=== PATIENT | female | born 1950 | race American Indian/Alaskan Native ===

== ENCOUNTER 2019-02-07 16:52 | Emergency (ER) | payer MEDICARE, MEDICAID ==
--- NOTE | 2019-02-07 17:06 | Emergency Department Report ---
Blank Doc - Documentation Documentation: 68 y o female presents with left shoulder pain, denies trauma, injury or fall ACC Eval
--- NOTE | 2019-02-07 20:09 | Emergency Department Report ---
Upper Extremity - HPI Chief Complaint: Shoulder Injury Stated Complaint: LT SHOULDER PAIN Time Seen by Provider: 02/07/19 17:04 Other History: pt is a 68 yo female who presents to the ED with c/o left shoulder pain that began a week and a half ago. she states that she was doing some heavy lifting helping her brother. she denies any fall, injury, or trauma. She states she does occasionally have a tingling sensation in the right arm to the fingers. she denies any numbness or weakness. ED Review of Systems ROS: Stated complaint: LT SHOULDER PAIN Other details as noted in HPI Comment: All other systems reviewed and negative ED Past Medical Hx - Past Medical History Hx Hypertension: Yes - Social History Smoking Status: Current Every Day Smoker Substance Use Type: None - Medications Home Medications: Home Medications Medication Instructions Recorded Confirmed Last Taken Type Acetaminophen/Codeine [Tylenol #3] 1 tab PO QHS PRN #7 tab 01/02/15 Unknown Rx methOCARBAMOL [Robaxin] 750 mg PO BID #10 tab 01/02/15 Unknown Rx Ibuprofen [Motrin 600 MG tab] 600 mg PO Q8H PRN #14 tablet 02/07/19 Unknown Rx Upper Extremity Exam - Exam General: Vital signs noted. No distress. Alert and acting appropriately. Head and Torso: No Neck Tenderness, No Chest/Lungs Abnormality Shoulder Exam: Yes Shoulder Tenderness (left sided AC joint tenderness to palpation), Yes Normal Range of Motion in Shoulder (discomfort with adduction ), Yes AC Joint Tenderness, No Clavicle Tenderness, No Shoulder Deformity Arm Exam: No Arm/Humerus Tenderness, No Arm Deformity Elbow: Yes Normal Range of Motion in Elbow, No Elbow Tenderness, No Elbow Deformity Forearm: No Forearm Tenderness, No Forearm Deformity, No Pain with Pronation, No Pain with Supination Wrist: Yes Normal ROM in Wrist, No Wrist Tenderness, No Wrist Deformity, No Snuffbox Tenderness, No Pain with Axial Thumb Compression Hand: Yes Normal ROM in Digit(s), No Hand Tenderness, No Hand Deformity, No Digit Tenderness, No Digit(s) Deformity, No Tendon Dysfunction CMS Exam: Yes Normal Distal Pulses, Yes Normal Capillary Refill, Yes Normal Distal Sensation, No Broken Skin ED Course Vital Signs 02/07/19 17:00 Temperature 99.7 F H Pulse Rate 75 Respiratory 16 Rate Blood Pressure 130/81 O2 Sat by Pulse 99 Oximetry ED Medical Decision Making - Radiology Data Radiology results: report reviewed XR of the left shoulder with no acute process - Medical Decision Making pt is a 68 yo female who presents to the ED with c/o left shoulder pain that began a week and a half ago. she states that she was doing some heavy lifting helping her brother. she denies any fall, injury, or trauma. She states she does occasionally have a tingling sensation in the right arm to the fingers. she denies any numbness or weakness. pt has some mild TTP over the left AC joint, pt has FROM of the left shoulder, has some discomfort upon adduction, neurovascularly intact. XR of the left shoulder with no acute process. discussed to please follow up with Dr. Rodriguez, orthopedic in the next 2-3 days. pt given motrin for discomfort advised to take medication as prescribed as needed. may use ice, heat, rest, epsom salt bath. return to the emergency room for any new or worsening symptoms. Critical care attestation.: If time is entered above; I have spent that time in minutes in the direct care of this critically ill patient, excluding procedure time. ED Disposition Clinical Impression: Paresthesia Left shoulder pain Qualifiers: Chronicity: acute Qualified Code(s): M25.512 - Pain in left shoulder Disposition: DC-01 TO HOME OR SELFCARE Is pt being admited?: No Does the pt Need Aspirin: No Condition: Stable Instructions: Shoulder Sprain (ED) Additional Instructions: Please follow up with Dr. Rodriguez, orthopedic in the next 2-3 days. take medication as prescribed as needed. may use ice, heat, rest, epsom salt bath. return to the emergency room for any new or worsening symptoms. Prescriptions: Ibuprofen [Motrin 600 MG tab] 600 mg PO Q8H PRN #14 tablet PRN Reason: Pain Referrals: KENY MCCALL MD [Primary Care Provider] - 2-3 Days NANCY RODRIGUEZ MD [Staff Physician] - 2-3 Days Time of Disposition: 21:49 Print Language: INDIAN
--- NOTE | 2019-02-07 21:10 | XRay Report ---
PROCEDURE: XR SHOULDER 2+V LT TECHNIQUE: Left shoulder radiographs, three views. HISTORY: left shoulder pain COMPARISONS: None . FINDINGS: Fracture (s) and/or Dislocation(s): None . Joint space(s): Normal . Soft tissues: Normal . Bone mineralization: Normal . Foreign bodies: None . IMPRESSION: Normal Examination . This document is electronically signed by Ha Sullivan MD., February 07 2019 10:08:40 PM ET
[2019-02-07 21:50] VITALS: BP 106/68
== END 2019-02-07 22:11 | disposition home or self-care (01) ==
LOC: ED 16:52
DX: M25.512 Pain in left shoulder (principal); R22.0 Localized swelling, mass and lump, head; I10 Essential (primary) hypertension; F17.200 Nicotine dependence, unspecified, uncomplicated